=== PATIENT | female | born 1980 | race Caucasian/White ===

== ENCOUNTER 2016-11-25 06:29 | Emergency (ER) | payer MEDICAID ==
[~2016-11-25] VITALS: Ht 154.9 cm; Wt 109.1 kg
[2016-11-25] MEDS ORDERED: SOD CHLORIDE 0.9% 1,000 ML IV STA (06:30)
[2016-11-25] MEDS ORDERED: morphine 4 MG/ML VIAL IV STA (06:30)
[2016-11-25] MEDS ORDERED: ONDANSETRON 4 MG INJ IV STA (06:30)
[2016-11-25 06:40] VITALS: Ht 154.9 cm; Wt 109.1 kg
--- NOTE | 2016-11-25 06:43 | ERA ---
ER Documentation Chief Complaint Date/Time DATE: 11/25/16 TIME: 06:40 Chief Complaint HPI This is a 36-year-old female history of cholelithiasis who presents to the emergency room with epigastric and right upper quadrant abdominal pain that started this morning. The pain is described as severe, constant and nonradiating. She states similar episodes in the past approximately 2 episodes per year that are usually brought on by stress. She describes nausea and vomiting that is nonbloody nonbilious. No diarrhea. She denies abdominal surgical history or outpatient follow-up for dilatation for cholecystectomy. ROS All systems reviewed and are negative except as per history of present illness. Medications Home Meds Active Scripts Ibuprofen* (Motrin*) 800 Mg Tab, 800 MG PO Q6H Y for PAIN AND OR ELEVATED TEMP, #30 TAB Prov:RONY MA MD 11/25/16 Ondansetron (Ondansetron Odt) 4 Mg Tab.rapdis, 4 MG PO Q6H Y for NAUSEA AND/OR VOMITING, #30 TAB Prov:RONY MA MD 11/25/16 Hydrocodone/Acetaminophen (Lena 10-325 Tablet) 1 Each Tablet, 1 TAB PO Q6H Y for PAIN, #12 TAB Prov:RONY MA MD 11/25/16 Allergies Allergies: Coded Allergies: No Known Allergy (Unverified , 11/25/16) PMhx/Soc History of Surgery: No Anesthesia Reaction: No Hx Neurological Disorder: No Hx Respiratory Disorders: No Hx Cardiac Disorders: No Hx Psychiatric Problems: No Hx Miscellaneous Medical Probl: No Hx Alcohol Use: No Hx Substance Use: No Hx Tobacco Use: No FmHx Family History: No diabetes Physical Exam Vitals Vital Signs Date Time Temp Pulse Resp B/P Pulse Ox O2 Delivery O2 Flow Rate FiO2 11/25/16 12:02 97.8 59 16 126/63 97 Room Air 11/25/16 11:30 63 16 128/96 99 Room Air 11/25/16 09:30 97.2 63 16 121/62 96 Room Air 11/25/16 06:40 97.2 69 20 120/57 98 11/25/16 06:40 97.2 69 20 120/57 98 Room Air Physical Exam General: Obese female, comfortable Head: Normocephalic, atraumatic. Eyes: Pupils equally reactive, EOM intact ENT: Moist mucous membranes Neck: Supple, no lymphadenopathy Respiratory: Lungs clear bilaterally, no distress Cardiovascular: RRR, no murmurs, rubs, or gallops Abdominal: Soft, mild epigastric tenderness to palpation and mild right upper quadrant but negative Swift sign, no peritonitis, no pulsatile mass. No tenderness to McBurney's point : Deferred MSK: No edema, no unilateral swelling, 5/5 strength Neurologic: Alert and oriented, moving all extremities, normal speech, no focal weakness, no cerebellar signs Skin: No rash Psych: Normal mood Result Diagram: 11/25/1655 11/25/16 0655 Results 24 hrs Laboratory Tests Test 11/25/16 06:55 White Blood Count 9.410^3/ul Red Blood Count 4.0410^6/ul Hemoglobin 11.9g/dl Hematocrit 34.6% Mean Corpuscular Volume 85.6fl Mean Corpuscular Hemoglobin 29.5pg Mean Corpuscular Hemoglobin Concent 34.4g/dl Red Cell Distribution Width 13.6% Platelet Count 77677^3/UL Mean Platelet Volume 9.1fl Neutrophils % 57.3% Lymphocytes % 38.2% Monocytes % 3.5% Eosinophils % 0.4% Basophils % 0.2% Nucleated Red Blood Cells % 0.0/100WBC Neutrophils # 5.410^3/ul Lymphocytes # 3.610^3/ul Monocytes # 0.310^3/ul Eosinophils # 0.010^3/ul Basophils # 0.010^3/ul Nucleated Red Blood Cells # 0.010^3/ul Prothrombin Time 12.0Sec Prothrombin Time Ratio 0.9 INR International Normalized Ratio 0.89 Activated Partial Thromboplast Time 25.1Sec Urine Color YELLOW Urine Clarity CLEAR Urine pH 6.0 Urine Specific [place] 1.010 Urine Ketones NEGATIVEmg/dL Urine Nitrite NEGATIVEmg/dL Urine Bilirubin NEGATIVEmg/dL Urine Urobilinogen NEGATIVEmg/dL Urine Leukocyte Esterase TRACELeu/ul Urine Microscopic RBC 2/HPF Urine Microscopic WBC 11/HPF Urine Bacteria MANY/HPF Urine Mucus MANY/HPF Urine Hemoglobin 3+mg/dL Urine Glucose NEGATIVEmg/dL Urine Total Protein NEGATIVEmg/dl Sodium Level 145mmol/L Potassium Level 4.0mmol/L Chloride Level 105mmol/L Carbon Dioxide Level 24mmol/L Anion Gap 20 Blood Urea Nitrogen 9mg/dl Creatinine 0.63mg/dl Glucose Level 103mg/dl Calcium Level 8.8mg/dl Total Bilirubin 0.0mg/dl Direct Bilirubin 0.00mg/dl Indirect Bilirubin 0.0mg/dl Aspartate Amino Transf (AST/SGOT) 21IU/L Alanine Aminotransferase (ALT/SGPT) 28IU/L Alkaline Phosphatase 94IU/L Total Protein 6.9g/dl Albumin 3.7g/dl Globulin 3.20g/dl Albumin/Globulin Ratio 1.15 Lipase 31U/L Serum HCG, Qualitative NEGATIVE Current Medications Medications (Trade) Dose Ordered Sig/Sanchez Route PRN Reason Start Time Stop Time Status Last Admin Dose Admin Sodium Chloride (NS) 1,000 ml @ 1,000 mls/hr Q1H STAT IV 11/25/16 06:30 11/25/16 07:29 DC 11/25/16 06:58 Morphine Sulfate (morphine) 4 mg ONCE STAT IV 11/25/16 06:30 11/25/16 06:33 DC 11/25/16 06:59 Ondansetron HCl (Zofran Inj) 4 mg ONCE STAT IV 11/25/16 06:30 11/25/16 06:33 DC 11/25/16 06:57 Hydromorphone HCl (Dilaudid) 0.5 mg ONCE STAT IV 11/25/16 11:38 11/25/16 11:39 DC 11/25/16 11:55 Procedures/MDM EKG, MONITORS, & DIAGNOSTIC IMAGING: Gallbladder ultrasound: Cholelithiasis with mild gallbladder wall thickening and dilated common bile duct MRCP IMPRESSION: Cholelithiasis with mild biliary dilatation without filling defect or choledocholithiasis. RPTAT: EE LAB INTERPRETATION: No evidence of hepatobiliary obstruction and a normal white count MEDICAL DECISION MAKING: The patient presents with stress-induced epigastric and right upper quadrant abdominal discomfort. Considerations include biliary colic, peptic ulcer disease. Lower clinical concern for choledocholithiasis, acute cholecystitis however laboratory testing and diagnostic imaging would be reasonable given her history, age. I do not believe this is consistent with bowel obstruction, acute appendicitis. No indication for CT imaging. ER COURSE: IV fluids and pain medications provided. The patient did require repeat dosing of pain medication. The patient has no leukocytosis and no evidence of hepatobiliary obstruction on labs however her ultrasound is concerning for dilated common bile duct. I spoke with Dr. Lai and discussed the case for inpatient versus outpatient management. He states that he given her insurance he can follow-up as an outpatient but recommends an MRCP to rule out choledocholithiasis. MRCP shows no evidence of choledocholithiasis. The patient's symptoms are improved. Repeat abdominal exam is benign. Outpatient follow-up for biliary colic and nonemergent cholecystectomy. Referral information provided return precautions discussed. I kept the patient and/or family informed of laboratory and diagnostic imaging results throughout the emergency room course. DISPOSITION PLAN: We discussed follow up with the patient's primary care doctor within 24 to 48 hours as needed. We also discussed return to the emergency room for worsening symptoms or worsening condition. Outpatient referral: Dr. Lai Discharge Medications: Lena, Zofran, Motrin We discussed the use of narcotics including avoidance of operating heavy machinery and driving as well as its addictive properties. CONSULTATION: Dr. Lai, general surgeon Departure Diagnosis: Primary Impression: Biliary colic Condition: Stable RONY MA MD Nov 25, 2016 06:43
[2016-11-25 07:14] LABS: BASOPHILS % 0.2 % (0.0-2.0); EOSINOPHILS % 0.4 % (0.0-7.0); HEMATOCRIT 34.6 % (37.0-47.0); HEMOGLOBIN 11.9 g/dl (12.0-16.0); LYMPHOCYTES # 3.6 10^3/ul (0.8-2.9); LYMPHOCYTES % 38.2 % (15.0-51.0); MEAN CORPUSCULAR HEMOGLOBIN 29.5 pg (29.0-33.0); MEAN CORPUSCULAR HGB CONC 34.4 g/dl (32.0-37.0); MEAN CORPUSCULAR VOLUME 85.6 fl (82.0-101.0); MEAN PLATELET VOLUME 9.1 fl (7.4-10.4); MONOCYTE # 0.3 10^3/ul (0.3-0.9); MONOCYTES % 3.5 % (0.0-11.0); NEUTROPHIL # 5.4 10^3/ul (1.6-7.5); NEUTROPHILS % 57.3 % (39.0-77.0); PLATELET COUNT 384 10^3/UL (140-415); RED BLOOD COUNT 4.04 10^6/ul (4.20-5.40); RED CELL DISTRIBUTION WIDTH 13.6 % (11.5-14.5); WHITE BLOOD COUNT 9.4 10^3/ul (4.8-10.8)
[2016-11-25 07:17] LABS: ADD UMIC YES; UR ASCORBIC ACID NEGATIVE (NEGATIVE); UR BACTERIA MANY /HPF (NONE SEEN); UR BILIRUBIN (Dip) NEGATIVE (NEGATIVE); UR BLOOD (Dip) 3+ mg/dL (NEGATIVE); UR CLARITY CLEAR (CLEAR); UR COLOR YELLOW (YELLOW); UR GLUCOSE (Dip) NEGATIVE (NEGATIVE); UR KETONES (Dip) NEGATIVE (NEGATIVE); UR LEUKOCYTE ESTERASE (Dip) TRACE Leu/ul (NEGATIVE); UR MUCUS MANY /HPF (NONE SEEN); UR NITRITE (Dip) NEGATIVE (NEGATIVE); UR RBC 2 /HPF (0-5); UR TOTAL PROTEIN (Dip) NEGATIVE (NEGATIVE); UR UROBILINOGEN (Dip) NEGATIVE (NEGATIVE)
[2016-11-25 07:27] LABS: INR 0.89; PT RATIO 0.9
[2016-11-25 07:28] LABS: PARTIAL THROMBOPLASTIN TIME 25.1 Sec (25.0-35.0)
[2016-11-25 07:33] LABS: ALBUMIN 3.7 g/dl (3.3-4.9); ALBUMIN/GLOBULIN RATIO 1.15; CALCIUM 8.8 mg/dl (8.4-10.2); CREATININE 0.63 mg/dl (0.44-1.00); TOTAL PROTEIN 6.9 g/dl (6.1-8.1)
--- NOTE | 2016-11-25 07:52 | RADRPT ---
PROCEDURE: US Abdomen. CLINICAL INDICATION: Abdominal pain TECHNIQUE: Multiple real-time images were acquired of the patient's abdomen and retroperitoneum ut ilizing a high resolution transducer. COMPARISON: None FINDINGS: The liver demonstrates normal echogenicity. The liver is normal in size and no focal lesions are see n. There are multiple calcified stones within the gallbladder. There is borderline gallbladder wal l thickening present without visible pericholecystic fluid. There is no gross visible intrahepatic b iliary ductal dilatation. The common bile duct measures 11 mm in maximal dimension. This is enlarged . The visualized portions of the pancreas are unremarkable. No free fluid is identified. The right kidney measures 12.4 cm in length without hydronephrosis. Visualized portions aorta and IVC are grossly unremarkable. IMPRESSION: Cholelithiasis. There is borderline gallbladder wall thickening. Enlarged common duct and the presence of choledocholithiasis cannot be excluded. MRCP can be perfor med to further evaluate. RPTAT: AA .Lisbet Sawant MD, Date Time Electronically viewed and signed by .Lisbet Sawant MD, MD on 11/25/2016 07:52 .Benja/
[2016-11-25] MEDS ORDERED: HYDROmorphONE 1 MG/ML SYG IV STA (11:38)
[2016-11-25 12:02] VITALS: BP 126/63; PULSE 59; RESP 16; TEMP 97.8
--- NOTE | 2016-11-25 13:17 | RADRPT ---
PROCEDURE: MRCP without contrast. CLINICAL INDICATION: Right upper quadrant abdominal pain. TECHNIQUE: Routine MRCP was obtained without the administration of intravenous contrast. COMPARISON: Same day ultrasound. FINDINGS: There are multiple stones in the gallbladder without gallbladder wall thickening or inflammation. T here is mild intra and extrahepatic bile duct dilatation with common bile duct measuring up to 9 mm. There is no filling defect or choledocholithiasis. There is no biliary stricture. The pancreatic duct is within normal limits. IMPRESSION: Cholelithiasis with mild biliary dilatation without filling defect or choledocholithiasis. RPTAT: EE .Jean Machuca MD, Date Time Electronically viewed and signed by .Jean Machuca MD, on 11/25/2016 13:22 .C/
[2016-11-25] MEDS ORDERED: IBUP800T25 PO (13:35)
[2016-11-25] MEDS ORDERED: ONDA4TAB14 PO (13:35)
[2016-11-25] MEDS ORDERED: HYDR-902 PO (13:35)
== END 2016-11-25 14:19 | disposition home or self-care (01) ==
LOC: E/R 06:29
DX: K80.50 Calculus of bile duct without cholangitis or cholecystitis without obstruction (principal); R11.2 Nausea with vomiting, unspecified
CPT/HCPCS: 36415; 74181; 76705; 80053; 81001; 83690; 84703; 85025; 85610; 85730; 96361; 96374; 96375; J1170; J2270; J2405; J7030; Z7502; Z7610

== ENCOUNTER 2016-12-19 13:37 | Emergency (ER) | payer MEDICAID ==
[~2016-12-19] VITALS: Ht 152.4 cm; Wt 102.2 kg
[~2016-12-19 13:37] MED LIST: HYDR-902 PO; IBUP800T25 PO; ONDA4TAB14 PO
[2016-12-19 13:41] VITALS: Ht 152.4 cm; Wt 102.2 kg
[2016-12-19] MEDS ORDERED: morphine 4 MG/ML VIAL IV STA (14:03)
[2016-12-19] MEDS ORDERED: ONDANSETRON 4 MG INJ IV STA (14:03)
[2016-12-19] MEDS ORDERED: SOD CHLORIDE 0.9% 1,000 ML IV STA (14:03)
[2016-12-19 14:40] LABS: BASOPHILS % 0.3 % (0.0-2.0); EOSINOPHILS % 0.4 % (0.0-7.0); HEMOGLOBIN 12.6 g/dl (12.0-16.0); LYMPHOCYTES # 3.9 10^3/ul (0.8-2.9); LYMPHOCYTES % 42.5 % (15.0-51.0); MEAN CORPUSCULAR HEMOGLOBIN 29.2 pg (29.0-33.0); MEAN CORPUSCULAR HGB CONC 33.2 g/dl (32.0-37.0); MEAN PLATELET VOLUME 9.8 fl (7.4-10.4); MONOCYTE # 0.6 10^3/ul (0.3-0.9); MONOCYTES % 6.4 % (0.0-11.0); NEUTROPHILS % 50.1 % (39.0-77.0); PLATELET COUNT 407 10^3/UL (140-415); RED BLOOD COUNT 4.32 10^6/ul (4.20-5.40); RED CELL DISTRIBUTION WIDTH 13.9 % (11.5-14.5); WHITE BLOOD COUNT 9.2 10^3/ul (4.8-10.8)
[2016-12-19] MEDS ORDERED: KETOROLAC 30 MG INJ IV STA (14:43)
[2016-12-19 14:52] LABS: ADD UMIC YES; UR ASCORBIC ACID NEGATIVE (NEGATIVE); UR BACTERIA FEW /HPF (NONE SEEN); UR BILIRUBIN (Dip) NEGATIVE (NEGATIVE); UR BLOOD (Dip) NEGATIVE (NEGATIVE); UR CLARITY SLIGHTLY CLOUDY (CLEAR); UR COLOR YELLOW (YELLOW); UR GLUCOSE (Dip) NEGATIVE (NEGATIVE); UR KETONES (Dip) NEGATIVE (NEGATIVE); UR LEUKOCYTE ESTERASE (Dip) 2+ Leu/ul (NEGATIVE); UR MUCUS MANY /HPF (NONE SEEN); UR NITRITE (Dip) NEGATIVE (NEGATIVE); UR RBC 12 /HPF (0-5); UR SPECIFIC GRAVITY (Dip) 1.021 (1.003-1.030); UR SQUAMOUS EPITHELIAL CELL MODERATE /HPF (FEW); UR TOTAL PROTEIN (Dip) NEGATIVE (NEGATIVE); UR UROBILINOGEN (Dip) NEGATIVE (NEGATIVE)
[2016-12-19 15:03] LABS: ALBUMIN/GLOBULIN RATIO 1.17; BILIRUBIN,INDIRECT 0.1 mg/dl (0-1.1); BILIRUBIN,TOTAL 0.1 mg/dl (0.2-1.3); CALCIUM 8.9 mg/dl (8.4-10.2); CREATININE 0.64 mg/dl (0.44-1.00); TOTAL PROTEIN 7.4 g/dl (6.1-8.1)
--- NOTE | 2016-12-19 15:55 | RADRPT ---
PROCEDURE: US Abdomen. CLINICAL INDICATION: Right upper quadrant Abdominal pain. TECHNIQUE: Multiple real-time images were acquired of the patient's abdomen and retroperitoneum ut ilizing a high resolution transducer. COMPARISON: None FINDINGS: The liver demonstrates diffuse increase echogenicity and enlarged in size and no focal lesions are s een. The liver measures 19.2 cm. Several calcified shadowing gallstones are present without gallbladder wall thickening. There is no pericholecystic fluid or gallbladder wall thickening. No intra or extrahepatic biliary dilatation i s seen. The common bile duct measures 5 mm in maximal dimension. The pancreas is not seen. The right kidney is unremarkable measuring 12.2 cm. No collecting system dilatation, stone or solid mass. IMPRESSION: Hepatomegaly with diffuse fatty infiltration. Cholelithiasis without biliary ductal dilatation. RPTAT: PP .Konstantin Quinn MD, Date Time Electronically viewed and signed by .Konstantin Quinn MD, MD on 12/19/2016 15:55 .M/
[2016-12-19] MEDS ORDERED: ONDA-43 PO (15:59)
[2016-12-19] MEDS ORDERED: IBUP-1542 PO (15:59)
[2016-12-19] MEDS ORDERED: FAMO-96 PO (15:59)
[2016-12-19] MEDS ORDERED: HYDR-906 PO (15:59)
[2016-12-19] MEDS ORDERED: CEPH-443 PO (16:01)
--- NOTE | 2016-12-19 16:12 | ERD ---
ER Documentation Chief Complaint Date/Time DATE: 12/19/16 TIME: 16:09 Chief Complaint EPIGASTRIC PAIN, NAUSEA AND VOMITING BEGAN 20 MINUTES AGO. HPI This is a 36-year-old female presents to the ER with a known history of gallstones complaining of right upper quadrant pain and epigastric pain that started 20 minutes ago. Patient has nausea and nonbilious nonbloody vomiting she also admits to some diarrhea. Patient states that she was drinking alcohol last night and had a lot of fattening food. Pain is severe and constant and radiates to her back. Patient has not taken anything for the pain. Denies any fevers or chills. ROS 12 point review of systems was done, all negative except per HPI. Medications Home Meds Active Scripts Cephalexin* (Keflex*) 500 Mg Capsule, 500 MG PO BID for 7 Days, CAP Prov:TELLY COREA 12/19/16 Famotidine* (Pepcid*) 20 Mg Tablet, 20 MG PO BID for 4 Days, TAB Prov:TELLY COREA 12/19/16 Ondansetron Hcl* (Zofran*) 4 Mg Tab, 4 MG PO Q4H Y for NAUSEA AND OR VOMITING for 5 Days, TAB Prov:TELLY COREA 12/19/16 Ibuprofen* (Motrin*) 600 Mg Tab, 600 MG PO Q6, #30 TAB Prov:TELLY COREA 12/19/16 Hydrocodone/Acetaminophen ([place] 5-325 Tablet) 1 Each Tablet, 1 TAB PO Q6H Y for PAIN, #20 TAB Prov:NAHOMYTELLY 12/19/16 Ibuprofen* (Motrin*) 800 Mg Tab, 800 MG PO Q6H Y for PAIN AND OR ELEVATED TEMP, #30 TAB Prov:RONY BONNER MD 11/25/16 Ondansetron (Ondansetron Odt) 4 Mg Tab.rapdis, 4 MG PO Q6H Y for NAUSEA AND/OR VOMITING, #30 TAB Prov:RONY BONNER MD 11/25/16 Hydrocodone/Acetaminophen ([place] 10-325 Tablet) 1 Each Tablet, 1 TAB PO Q6H Y for PAIN, #12 TAB Prov:RONY BNONER MD 11/25/16 Allergies Allergies: Coded Allergies: No Known Allergy (Unverified , 12/19/16) PMhx/Soc History of Surgery: No Anesthesia Reaction: No Hx Neurological Disorder: No Hx Respiratory Disorders: No Hx Cardiac Disorders: No Hx Psychiatric Problems: No Hx Miscellaneous Medical Probl: No Hx Alcohol Use: Yes (SOCIALLY) Hx Substance Use: No Hx Tobacco Use: Yes Smoking Status: Current every day smoker Physical Exam Vitals Vital Signs Date Time Temp Pulse Resp B/P Pulse Ox O2 Delivery O2 Flow Rate FiO2 12/19/16 13:41 97.8 55 20 127/71 100 Physical Exam GENERAL: The patient is well developed and appropriate for usual state of health , in no apparent distress. HEENT: Atraumatic CHEST: Clear to auscultation bilaterally. There are no rales, wheezes or rhonchi. HEART: Regular rate and rhythm. No murmurs, clicks, rubs or gallops. ABDOMEN: Soft nondistended, tender to palpation the right upper quadrant. Good bowel sounds. No rebound or guarding. No gross peritonitis. No gross organomegaly or masses. Positive Swift sign , negative McBurney point tenderness. BACK: No midline or flank tenderness. NEURO: Alert and oriented. Result Diagram: 12/19/16 1408 12/19/16 1408 Results 24 hrs Laboratory Tests Test 12/19/16 14:00 12/19/16 14:08 Urine Color YELLOW Urine Clarity SLIGHTLY CLOUDY Urine pH 6.0 Urine Specific [place] 1.021 Urine Ketones NEGATIVEmg/dL Urine Nitrite NEGATIVEmg/dL Urine Bilirubin NEGATIVEmg/dL Urine Urobilinogen NEGATIVEmg/dL Urine Leukocyte Esterase 2+Theresa/ul Urine Microscopic RBC 12/HPF Urine Microscopic WBC 30/HPF Urine Squamous Epithelial Cells MODERATE/HPF Urine Bacteria FEW/HPF Urine Mucus MANY/HPF Urine Hemoglobin NEGATIVEmg/dL Urine Glucose NEGATIVEmg/dL Urine Total Protein NEGATIVEmg/dl White Blood Count 9.210^3/ul Red Blood Count 4.3210^6/ul Hemoglobin 12.6g/dl Hematocrit 38.0% Mean Corpuscular Volume 88.0fl Mean Corpuscular Hemoglobin 29.2pg Mean Corpuscular Hemoglobin Concent 33.2g/dl Red Cell Distribution Width 13.9% Platelet Count 54771^3/UL Mean Platelet Volume 9.8fl Neutrophils % 50.1% Lymphocytes % 42.5% Monocytes % 6.4% Eosinophils % 0.4% Basophils % 0.3% Nucleated Red Blood Cells % 0.0/100WBC Neutrophils # (Manual) 510^3/ul Lymphocytes # 3.910^3/ul Monocytes # 0.610^3/ul Eosinophils # 0.010^3/ul Basophils # 0.010^3/ul Nucleated Red Blood Cells # 0.010^3/ul Sodium Level 142mmol/L Potassium Level 4.0mmol/L Chloride Level 104mmol/L Carbon Dioxide Level 28mmol/L Anion Gap 14 Blood Urea Nitrogen 14mg/dl Creatinine 0.64mg/dl Glucose Level 108mg/dl Calcium Level 8.9mg/dl Total Bilirubin 0.1mg/dl Direct Bilirubin 0.00mg/dl Indirect Bilirubin 0.1mg/dl Aspartate Amino Transf (AST/SGOT) 38IU/L Alanine Aminotransferase (ALT/SGPT) 33IU/L Alkaline Phosphatase 84IU/L Total Protein 7.4g/dl Albumin 4.0g/dl Globulin 3.40g/dl Albumin/Globulin Ratio 1.17 Lipase 47U/L Current Medications Medications (Trade) Dose Ordered Sig/Sanchez Route PRN Reason Start Time Stop Time Status Last Admin Dose Admin Sodium Chloride (NS) 1,000 ml @ 1,000 mls/hr Q1H STAT IV 12/19/16 14:03 12/19/16 15:02 DC 12/19/16 14:35 Morphine Sulfate (morphine) 6 mg ONCE STAT IV 12/19/16 14:03 12/19/16 14:05 DC 12/19/16 14:31 Ondansetron HCl (Zofran Inj) 4 mg ONCE STAT IV 12/19/16 14:03 12/19/16 14:05 DC 12/19/16 14:31 Ketorolac Tromethamine (Toradol) 30 mg ONCE STAT IV 12/19/16 14:43 12/19/16 14:44 DC 12/19/16 14:57 Procedures/MDM EKG [address] elevation or T-wave inversion this EKG was signed by Dr. Bonner Differential Diagnosis: GERD, gastritis, peptic ulcer disease, pancreatitis, cholecystitis, choledocholithiasis, biliary colic, cholangitis, [id number] , ACS/IA, Pnuemonia. Patient does have cholelithiasis however there is no evidence of cholecystitis. There is no gallbladder wall thickening I doubt choledocholithiasis. Patient's pain was controlled. She will be sent home with [place], ibuprofen, Zofran, Pepcid, Keflex. Patient is to follow-up with her primary care doctor within 1-2 days return to ER sooner if symptoms worsen. I shared my medical decision making with the patient she understands and agrees with plan. I also discussed diet changes and advised her to avoid fattening foods. Departure Diagnosis: Primary Impression: Gallstones Condition: Stable Patient Instructions: Gallstones Additional Instructions: Call your primary care doctor TOMORROW for an appointment during the next 1-2 days.See the doctor sooner or return here if your condition worsens before your appointment time. TELLY COREA Dec 19, 2016 16:12
[2016-12-19 16:15] VITALS: BP 128/68; PULSE 64; RESP 20; TEMP 98.1
== END 2016-12-19 16:17 | disposition home or self-care (01) ==
LOC: FTE 13:37
DX: K80.20 Calculus of gallbladder without cholecystitis without obstruction (principal); R11.2 Nausea with vomiting, unspecified; F17.210 Nicotine dependence, cigarettes, uncomplicated
CPT/HCPCS: 36415; 76705; 80053; 81001; 83690; 85025; 93005; 96361; 96374; 96375; J1885; J2270; J2405; J7030; Z7502

== ENCOUNTER 2016-12-22 13:57 | Outpatient (CLI) | payer MEDICAID ==
[~2016-12-22] VITALS: Ht 152.4 cm; Wt 101.8 kg
[~2016-12-22 13:57] MED LIST changes: +CEPH-443 PO; +FAMO-96 PO; +HYDR-906 PO; +IBUP-1542 PO; +ONDA-43 PO
[2016-12-22 14:05] VITALS: BP 137/77; PULSE 88; RESP 18; Ht 152.4 cm; Wt 101.8 kg
--- NOTE | 2016-12-22 15:00 | CONS ---
Date/Time of Note Date/Time of Note DATE: 12/22/16 TIME: 14:55 Assessment/Plan Assessment/Plan Additional Assessment/Plan [facility] INITIAL OUTPATIENT CONSULTATION NOTE DATE OF CONSULTATION: 12/22/2016 PLACE OF SERVICE: [facility] ([facility]) at [facility] ASSESSMENT AND PLAN: A very-pleasant 36-year-old lady with comorbidity of BMI 43.8 unknown cholelithiasis, presenting with more symptomatic cholelithiasis. I recommended laparoscopic, possible open cholecystectomy, described the rationale behind my recommendation, reviewed the operation in detail including the anatomy, risks, benefits, and alternatives with the patient and her family and answered all of their questions to the best my ability. We also discussed for more than 15 minutes the importance of permanent change in lifestyle in order to achieve a BMI in a more healthy range. I believe that the patient and family appear to understand and wish to proceed with the plans. With above assessment, I've recommended the followin. Preoperative history and physical 2. Schedule for laparoscopic, possible open cholecystectomy at patient's convenience 3. Adopted much more healthier lifestyle in order to bring BMI down to a more healthy range Thank you very much for having me involved in the care of this very pleasant patient and wonderful family. If you have any questions, please feel free to contact me at [phone]. Nature of presenting problem: Moderate severity Please note that, given the limited number of diagnoses or management options, the limited amount and/or complexity of data needed to be reviewed, and low to moderate risk of complications and/or morbidity or mortality, this qualifies as low complexity type of decision-making. Disclaimer: Inadvertent spelling and grammatical errors are likely due to EHR/ dictation software use and do not reflect on the quality of delivered patient care. Also, please note that the electronic time recorded on this node does not necessarily reflect the actual time of the visit. Updated clinical summary: A very-pleasant 36-year-old lady with comorbidity of BMI 43.8 unknown cholelithiasis, presenting with more symptomatic cholelithiasis. Comorbidities: 1. BMI 43.8 2. Known cholelithiasis with recent symptomatic cholelithiasis 3. Recent dental work on lower jaw (November 2016) 4. Hepatomegaly with diffuse fatty infiltration (RUQ ultrasound [facility] ED 2016) CONSULTATION REQUESTED BY: Esperanza Bonner MD HISTORY OF PRESENT ILLNESS: The patient is a very pleasant 36-year-old lady with comorbidity of BMI 43.8 unknown cholelithiasis, who was kindly referred to us for management of her symptomatic cholelithiasis. She had a recent visit to our emergency department on 11/25/2016 with symptoms of abdominal pain associated with nausea and vomiting, located in the right upper quadrant, similar to previous 2 episodes last year and around the time of her many years ago. No major radiation of pain at that time. Pain has since resolved. She has no other main symptoms at this time. ALLERGIES: NO KNOWN DRUG ALLERGIES MEDICATIONS Documented in the electronic records and reviewed by me. Please see the electronic records for details. Currently she was on Augmentin due to a recent dental procedure that she had on the right lower jaw, as well as [place] and ibuprofen. SOCIAL HISTORY: The patient lives with family. Has 4 children. Is . Manages dental office. Occasional Tob; occasional ETOH;-IVDU FAMILY HISTORY: Diabetes mellitus and hypertension. There are no other significant medical, surgical or oncologic issues in the family as reported by the patient or reflected in the chart. REVIEW OF SYSTEMS: Other than mentioned above, there were no other pertinent positives or pertinent negatives in an otherwise complete 14 point review of systems. PHYSICAL EXAMINATION GENERAL: The patient appears to be a very pleasant lady of descent lying in bed, appearing stated age,] and otherwise in no acute distress. BMI: 43.8 VITAL SIGNS: AVSS (please also see auto important data if available as well as the electronic records) HEENT: Normocephalic and atraumatic. Extraocular muscles and hearing are grossly intact bilaterally and symmetrically. Sclerae are nonicteric. Oral cavity is clear; oral mucosa appear to be pink and moist. Dentition: fair. NECK: Supple. There is no lymphadenopathy or JVD. There is no submental, submandibular or supraclavicular lymphadenopathy. CHEST: Rises symmetrically with each breath; patient is breathing comfortably. There are no audible wheezes, rales or rhonchi on the gross exam. HEART: Pulse is regular and palpable on the right wrist. Capillary refill is normal. Carotid pulses are palpable bilaterally and symmetrically in the neck. EXTREMITIES: Lower extremities contain no pitting edema around the ankles bilaterally and symmetrically. ABDOMEN: Abdomen is soft, nontender and nondistended. No evidence of ascites, organomegaly, caput medusae, engorged subcutaneous veins, or other abnormalities. There are no peritoneal signs or guarding. SKIN: Appears to be pink and feels warm to touch. NEUROLOGIC: Awake, alert, and follows commands appropriately. LABORATORY DATA: October 2016: For the most part normal. IMAGING: See electronic chart. Please note that I've personally reviewed all pertinent available images and I agree in general with their overall reported findings. Right upper quadrant ultrasound [facility] 12/19/2016 IMPRESSION: Hepatomegaly with diffuse fatty infiltration. Cholelithiasis without biliary ductal dilatation. MRCP [facility] 11/25/2016 IMPRESSION: Cholelithiasis with mild biliary dilatation without filling defect or choledocholithiasis. Consultation Date/Type/Reason Admit Date/Time Exam/Review of Systems Vital Signs Vitals Vital Signs Date Time Temp Pulse Resp B/P Pulse Ox O2 Delivery O2 Flow Rate FiO2 12/22/16 14:05 98.2 88 18 137/77 96 Room Air SCOTTIE YEAGER M.D. Dec 22, 2016 15:00
== END 2016-12-22 17:00 | disposition home or self-care (01) ==
LOC: HPC 13:57
PROVIDERS: ATTEND Transplant Surgery
DX: K80.20 Calculus of gallbladder without cholecystitis without obstruction (principal); K76.0 Fatty (change of) liver, not elsewhere classified
CPT/HCPCS: G0463

== ENCOUNTER 2017-05-25 12:26 | Emergency (ER) | END 2017-05-25 13:54 | disposition home or self-care (01) ==